=== PATIENT | female | born 1965 | race Caucasian/White ===

== ENCOUNTER → 2019-02-23 | Emergency (ER) | payer BC ==
[~2019-02-23] VITALS: Ht 160 cm; Wt 61.2 kg
== END | disposition home or self-care (01) ==
LOC: ER 17:26
DX: S92.352A Displaced fracture of fifth metatarsal bone, left foot, initial encounter for closed fracture (principal); X50.0XXA Overexertion from strenuous movement or load, initial encounter; Y93.69 Activity, other involving other sports and athletics played as a team or group; Y92.312 Tennis court as the place of occurrence of the external cause; Y99.8 Other external cause status